=== PATIENT | male | born 1960 | race Caucasian/White ===

== ENCOUNTER 2018-09-15 09:48 | Day surgery (SDC) | payer OTHER ==
[2018-09-11 15:23] VITALS: BMI 27.2
[~2018-09-15 09:48] MED LIST: LACTATED RINGERS 1,000 ML IV SCH; LIDOCAINE 1% 20 ML VIAL (10MG/ML) FOR IV START INTRADERMA PRN
[2018-09-15 10:14] VITALS: TEMP 97.8
[2018-09-15] MEDS ORDERED: LACTATED RINGERS 1,000 ML IV ONE ×2 (10:15→12:05)
[2018-09-15] MEDS ORDERED: LIDOCAINE 1% 20 ML VIAL (10MG/ML) FOR IV START INTRADERMA ONE (10:16)
[2018-09-15] MEDS ORDERED: MIDAZOLAM 2 MG/2 ML VIAL ONE (11:11)
[2018-09-15] MEDS ORDERED: PROPOFOL 10 MG/ML 20 ML VIAL IV ONE (11:11)
[2018-09-15] MEDS ORDERED: fentaNYL (PF) 50 MCG/ML 2 ML AMP ONE (11:11)
[2018-09-15 12:07] VITALS: RESP 16
--- NOTE | 2018-09-15 12:09 | P.PCN ---
Date of Procedure: 09/15/18 Description of Procedure: BRIEF HISTORY: Patient is a 58-year-old pleasant male scheduled for an elective colonoscopy as a part of screening for malignant colon cancer. The patient reports last colonoscopy was 10 years any bleeding significant only for hemorrhoids. No change in bowel habits, diarrhea or constipation. He does occasionally notice some blood per rectum with wiping. No family history of colon cancer. PROCEDURE PERFORMED: Colonoscopy. PREOPERATIVE DIAGNOSIS: Screening for malignant neoplasm of the colon, blood per rectum, last colonoscopy 10 years ago. ESTIMATED BLOOD LOSS: Minimal. IV sedation per Anesthesia. PROCEDURE: After informed consent was obtained, the patient, was brought into the endoscopy unit. IV sedation was administered by Anesthesia under continuous monitoring. Digital rectal examination was normal. Initially the Olympus CF-190 flexible video colonoscope was then inserted in the rectum, gradually advanced into the cecum without any difficulty. Careful examination was performed as the scope was gradually being withdrawn. Ileocecal valve and the appendiceal orifice were visualized and appeared normal. The terminal ileum was intubated and appeared normal. Prep was good. Mucosa of the cecum, ascending colon, transverse colon, descending colon, sigmoid colon, and rectum appeared normal. 2 diminutive 3 mm sessile descending colon polyps were removed with cold forcep polypectomy. Mild internal hemorrhoids. Retroflexion was performed in the rectum and no lesions were seen. The patient tolerated the procedure well. IMPRESSION: Normal-appearing colon from rectum to cecum. 2 diminutive descending colon polyps removed with cold forceps. Mild internal hemorrhoids. RECOMMENDATIONS: Findings of this examination were discussed with the patient and his . Okay to resume diet. Anticipate repeat colonoscopy in 5 years pending pathology from polypectomies.
[2018-09-15 12:18] VITALS: BP 140/80; PULSE 64
== END 2018-09-15 13:20 | disposition home or self-care (01) ==
LOC: ORWHC2ENDO 09:48
PROVIDERS: ATTEND Internal Medicine
DX: Z12.11 Encounter for screening for malignant neoplasm of colon (principal); D12.4 Benign neoplasm of descending colon; K64.8 Other hemorrhoids; I10 Essential (primary) hypertension; F17.210 Nicotine dependence, cigarettes, uncomplicated; Z79.899 Other long term (current) drug therapy
CPT/HCPCS: 45380; 88305; J2250; J3010; J2704

== ENCOUNTER → 2021-11-02 | Outpatient (CLI) | payer OTHER ==
--- NOTE | 2021-11-02 22:17 | MR ---
EXAMINATION TYPE: MR shoulder LT wo con DATE OF EXAM: 11/02/2021 COMPARISON: Radiographs 11/02/2021 HISTORY: Left shoulder pain and limited range of motion TECHNIQUE: Multiplanar, multisequence imaging of the left shoulder is performed without contrast. FINDINGS: Rotator Cuff: Moderate grade bursal surface partial-thickness tear of the supraspinatus tendon anteri or fibers on the background of moderate tendinosis. Moderate grade partial-thickness tear of the subs capularis tendon cranial fibers. Infraspinatus and teres minor tendons are grossly intact. No signifi cant rotator cuff muscular atrophy or edema. Acromioclavicular Joint: Moderate to severe osteoarthritis Glenohumeral Joint: Mild to moderate osteoarthritis. Labrum: Tear of the superior labrum extending approximately from the 9:00 to 6:00 position. Associate d edema and fluid in the subscapularis recess. There is involvement of the biceps anchor. Biceps Tendon: Moderate tendinosis of the long head biceps tendon with medial subluxation. Mild tenos ynovitis of the long head biceps tendon. Bone marrow signal: No focal abnormal marrow signal is appreciated. Other: No additional significant abnormality is appreciated. IMPRESSION: Moderate grade partial-thickness tear of the left supraspinatus and subscapularis tendons. SLAP type glenoid labral tear involving the biceps anchor. Associated edema and fluid in the subscapu itz recess. Also mild tenosynovitis of the long head biceps tendon. Moderate tendinosis of the long head biceps tendon with medial subluxation.
== END | disposition home or self-care (01) ==
LOC: RADMRIMAIN 14:05
PROVIDERS: ATTEND Orthopaedic Surgery
DX: M25.512 Pain in left shoulder (principal)

== ENCOUNTER 2021-12-28 05:50 | Day surgery (SDC) | payer OTHER ==
--- NOTE | 2021-12-28 03:23 | HP ---
HISTORY AND PHYSICAL Surgery is scheduled for 12/28/2021. HISTORY OF PRESENT ILLNESS: Lawrence Riley is a 61-year-old gentleman seen with progressive left shoulder pain. We discussed options for treatment. He elected to proceed with left shoulder arthroscopy. Consent was obtained. PAST MEDICAL HISTORY: Hypertension. PAST SURGICAL HISTORY: Right shoulder arthroscopy. DAILY MEDICATIONS: 1. Lisinopril. 2. Naproxen. ALLERGIES: None. SOCIAL HISTORY: Denies tobacco use. PHYSICAL EVALUATION OF THE LEFT SHOULDER: Flexion is 90 degrees, abduction is 90 degrees, external rotation is 10 degrees with weakness, tenderness along the anterolateral acromion, rotator cuff insertion. Impingement is positive at 90. Drop-arm sign is positive. Cross-body adduction sign is positive. Distal neurovascular exam is intact. RADIOGRAPHS: Left shoulder type 3 acromion, severe acromioclavicular osteoarthritis and cystic changes of the greater tuberosity. MRI of left shoulder, partial rotator cuff tear, labral tear, acromioclavicular joint osteoarthritis, and biceps tendinosis. IMPRESSION: 1. Left shoulder impingement with partial rotator cuff tear. 2. Left shoulder labral tear. 3. Left shoulder acromioclavicular joint osteoarthritis. 4. Hypertension. PLAN: Left shoulder arthroscopy with subacromial decompression, possible arthroscopic rotator cuff repair, Nola procedure, probable biceps tenotomy and debridement. MMODL / IJN: [id number] /
[2021-12-28] MEDS ORDERED: DEXAMETHASONE SOD PHOSPHATE 4 MG/ML 1 ML VIAL IV ONE (06:08)
[2021-12-28] MEDS ORDERED: ONDANSETRON 4 MG/2 ML VIAL IVP ONE (06:08)
[2021-12-28] MEDS ORDERED: LACTATED RINGERS 1,000 ML IV SCH (06:08)
[2021-12-28] MEDS ORDERED: HYDROmorphone 0.5 MG/0.5 ML SYRINGE IVP PRN (06:08)
[2021-12-28 06:25] VITALS: RESP 16; TEMP 98
[2021-12-28] MEDS ORDERED: fentaNYL (PF) 50 MCG/ML 2 ML AMP IVP ONE (07:07)
[2021-12-28] MEDS ORDERED: MIDAZOLAM 2 MG/2 ML VIAL IVP ONE (07:07)
[2021-12-28] MEDS ORDERED: NEOSTIGMINE 1 MG/ML 10 ML VIAL ONE (07:25)
[2021-12-28] MEDS ORDERED: fentaNYL (PF) 50 MCG/ML 2 ML AMP ONE (07:25)
[2021-12-28] MEDS ORDERED: ROCURONIUM 10 MG/ML (5 ML VIAL) IV ONE (07:25)
[2021-12-28] MEDS ORDERED: PROPOFOL 10 MG/ML 20 ML VIAL IV ONE (07:25)
[2021-12-28] MEDS ORDERED: PHENYLEPHRINE-0.9% NACL SYG 1,000 MCG/10 ML SYRINGE ONE (07:25)
[2021-12-28] MEDS ORDERED: MIDAZOLAM 2 MG/2 ML VIAL ONE (07:25)
[2021-12-28] MEDS ORDERED: LIDOCAINE 2% INJ 20 MG/ML (2 ML VIAL) ONE (07:25)
[2021-12-28] MEDS ORDERED: ROPIVACAINE 5 MG/ML 30 ML VIAL ONE (07:25)
[2021-12-28] MEDS ORDERED: GLYCOPYRROLATE 0.2 MG/ML 2 ML VIAL ONE (07:25)
[2021-12-28] MEDS ORDERED: SUCCINYLCHOLINE CHLORIDE 200 MG/10 ML VIAL IV ONE (07:25)
--- NOTE | 2021-12-28 07:54 | P.ANPRN ---
Procedure Note - Anesthesia - Nerve Block Performed Left Interscalene Single Time Out Performed: Yes ([id number]) Date of Procedure: 12/28/21 Procedure Start Time: : Procedure Stop Time: :14 Location of Patient: PreOp Indication: Acute Post-Operative Pain, Requested by Surgeon Specifically requested for management of pain by DrLinsey: Reece Olmedo Sedation Type: Sedate with meaningful contact maintained Preparation: Sterile Prep Position: Supine Catheter: None Needle Types: Pajunk Needle Gauge: 21 Ultrasound used to visualize needle placement: Yes Ultrasound used to observe medication spread: Yes Injectate: 0.5% Ropivacaine (see comment for volume) (30cc) Blood Aspirated: No Pain Paresthesia on Injection Noted: No Resistance on Injection: Normal Image Stored and Saved: Yes Events: Uneventful and Well Tolerated
[2021-12-28] MEDS ORDERED: LACTATED RINGERS 1,000 ML IV ONE (08:21)
--- NOTE | 2021-12-28 08:50 | P.OP ---
Date of Procedure: 12/28/21 Preoperative Diagnosis: Left shoulder impingement Postoperative Diagnosis: 1. Left shoulder rotator cuff 2. Left shoulder impingement 3. Left shoulder partial long head biceps tendon tear Procedure(s) Performed: 1. Left shoulder arthroscopic rotator cuff repair 2. Left shoulder arthroscopic subacromial decompression 3. Left shoulder arthroscopic biceps tenotomy Implants: 15.5 Arthrex swivel lock anchor Anesthesia: GETA, regional (Interscalene block) Surgeon: Reece Olmedo Upset Operator #1: Tommie Arboleda Estimated Blood Loss (ml): 7 Pathology: none sent Condition: stable Disposition: PACU Indications for Procedure: 61-year-old patient seen with progressive left shoulder pain. After treatment options were discussed, he elected to proceed with arthroscopy. Operative Findings: See description of procedure Description of Procedure: Patient underwent an interscalene block by department of anesthesia. The patient was then taken to the operative suite. The patient underwent a general anesthetic by the department of anesthesia. The patient was placed into a lateral position and secured. There was appropriate padding of the bony prominence. Left shoulder was then prepped and draped in normal sterile orthopedic fashion. We placed the extremity in 10 pounds of longitudinal traction. A posterior incision was now made for a posterior working portal site. The trocar and cannula were inserted into the glenohumeral joint. Arthroscopy was initiated. Spinal needle was now inserted anteriorly, to ascertain the anterior working portal site. An incision was now made in that area, a trocar was inserted followed by a probe. There was some hyperemia and partial tearing long head biceps tendon. There was some superficial tearing of the superior la raina. There were mild grade 1 chondromalacia changes of the glenohumeral joint. I performed arthroscopic biceps tenotomy. I debrided the area of superficial fraying of labrum. The leg was again probed and was found to be stable. Instruments were now removed from glenohumeral joint. Utilizing the posterior working portal site, the trocar and cannula were inserted into the subacromial space. Arthroscopy initiated. I made an incision 2 fingerbreadths lateral to the acromion. I introduced my trocar followed by my ArthroCare ablator. I now began ablating thick subacromial bursal tissue, which exposed the undersurface of the anterior acromion. There was diminished subacromial space. There was a very prominent anterior acromion. A motorized bur was introduced and a subacromial decompression was performed. I also excised some osteophytes off the inferior aspect of the distal clavicle. The AC joint was visualized and noted to be moderately arthritic, I did not think enough toward a Nola procedure. I turned my attention to the rotator cuff tendon. There was a full-thickness perforation along the anterior aspect of the distal supraspinatus. I debrided the margins getting down to stable tendon tissue. The tear/defect measuring approximately 1.5 cm and was freely mobile over the footprint. I abraded the footprint with a motorized bur. I passed 3 everted mattress suture through good bites of rotator cuff tendon. I punched hole in the footprint area for insertion of an anchor. All 6 limbs of suture were passed through the eyelet of a 5.5 Arthrex swivel lock anchor. I placed the eyelet into the pre-punched hole. I held in position while Kulwant GOMES tensioned all 6 limbs of suture and deployed the anchor with good fixation noted. All residual suture limbs were now clipped. We had good compression of the tendon along the entire footprint. Instruments now removed from the portal sites. All portal sites were approximated with nylon suture. Sterile dressings were applied followed by a shoulder sling. Tommie GOMES assisted in this complex case. The patient was awakened, transferred to a bed, and taken to recovery in stable condition.
[2021-12-28 09:43] VITALS: BP 142/91; PULSE 85
[2021-12-28] MEDS ORDERED: HYDROcodone/APAP 7.5-325MG 1 EACH TAB ONE (09:45)
== END 2021-12-28 10:40 | disposition home or self-care (01) ==
LOC: OR 05:50
PROVIDERS: ATTEND Orthopaedic Surgery
DX: M19.012 Primary osteoarthritis, left shoulder (principal); G89.18 Other acute postprocedural pain; M75.42 Impingement syndrome of left shoulder; M75.102 Unspecified rotator cuff tear or rupture of left shoulder, not specified as traumatic; S43.492A Other sprain of left shoulder joint, initial encounter; I10 Essential (primary) hypertension; E78.5 Hyperlipidemia, unspecified; Z87.891 Personal history of nicotine dependence; X58.XXXA Exposure to other specified factors, initial encounter
CPT/HCPCS: 29827; 29826; 29828; 64415; 76942; C1713; J2250; J0330; J1100; J2710; J0690; J2405; J3010; J2795; J2370; J2704; J2001

== ENCOUNTER → 2022-05-23 | Outpatient (CLI) | payer OTHER ==
--- NOTE | 2022-05-23 14:59 | CTL ---
EXAMINATION TYPE: CT Low Dose Lung DATE OF EXAM ORDERED: 05/23/2022 HISTORY: Long-term tobacco use. Lung cancer screening CT DLP: [address] CTDI: 2.6 mGy Automated exposure control for dose reduction was used. SCREENING VISIT: Baseline COMPARISON: None TECHNIQUE: Low dose computed tomography scan was performed through the chest at 1 mm thick sections a nd reconstructed images in multiple planes at 1 mm and [address] DIAGNOSTIC QUALITY: Limited, but interpretable FINDINGS: LUNG NODULES: Present, detailed below: A few scattered small nodules. There is 5 mm posterior right upper lung nodule or nodular consolidati on axial image 36 for reference. There is 4 to 5 mm medial left lower lobe nodule axial image 233 not ed for reference. LUNGS: COPD: Severity: Mild to minimal Fibrosis: Severity: Mild to moderate linear scarring and/or atelectasis in the right lower lung Lymph nodes: No greater than 1 cm Other findings: Prominent right pulmonary artery raises concern for underlying pulmonary hypertension . RIGHT PLEURAL SPACE: Effusion: Small 2 borderline moderate-sized Calcification: None Thickening: None Pneumothorax: None LEFT PLEURAL SPACE: Effusion: None Calcification: None Thickening: None Pneumothorax: None HEART: Heart Size: Normal Coronary Calcification: Mild to moderate Pericardial Effusion: None Some calcification at the level of the mitral valve. OTHER FINDINGS: Upper abdomen: Visualized liver is low dense suggesting diffuse fatty infiltration. Bony thorax: Multilevel spurring and bridging osteophytes in the thoracic spine Supraclavicular region: None Other: Bilateral subareolar gynecomastia is suspected slightly more prominent on the right, correlate clinically. Ectatic ascending thoracic aorta up to 3.9 cm. IMPRESSION: Suboptimal with a few small nodules. No significant greater than [address] LUNG RAD AND CT CHEST RECOMMENDATION: Lung-Rad 2 Benign Appearance or Behavior: Continue annual sc reening with LDCT in 12 months. S Modifier (other clinically significant findings): S Small right pleural effusion. Unilateral pleural effusion may want further clinical workup. Suspect a symmetric right greater than left gynecomastia. Clinical correlation and direct physical exam correla tion advised. Suspect underlying pulmonary hypertension. Ectatic ascending aorta up to 3.9 cm. Some c alcification level of the mitral valve. Consider cardiac echo follow up to further evaluate.
== END | disposition home or self-care (01) ==
LOC: RADCTMAIN 13:29
PROVIDERS: ATTEND Family Medicine
DX: Z12.2 Encounter for screening for malignant neoplasm of respiratory organs (principal); F17.210 Nicotine dependence, cigarettes, uncomplicated; R91.8 Other nonspecific abnormal finding of lung field
CPT/HCPCS: 71271

== ENCOUNTER 2022-06-04 08:12 | Day surgery (SDC) | payer OTHER ==
--- NOTE | 2022-06-03 21:01 | HP ---
HISTORY AND PHYSICAL DATE OF SURGERY: 06/04/2022 HISTORY O PRESENT ILLNESS: Lawrence Betts is a 62-year-old patient seen with persistent left shoulder adhesive capsulitis. We discussed options. He elected to proceed with manipulation under anesthesia left shoulder steroid injection. Consents obtained. PAST MEDICAL HISTORY: Hypertension. SURGICAL HISTORY: Shoulder arthroscopy. DAILY MEDICATIONS: Antihypertensive. ALLERGIES: None. SOCIAL HISTORY: Smokes cigarettes. PHYSICAL EXAMINATION OF LEFT SHOULDER: Previous arthroscopic portal sites are well healed. He flexes to 90 degrees, abducts to 60 degrees. External rotation is 50 degrees with reasonable strength. His distal neurovascular exam is intact. RADIOGRAPHS: Radiographs of the left shoulder revealed stable conversion to a flat anterior acromion. IMPRESSION: 1. Left shoulder adhesive capsulitis. 2. History of previous left shoulder arthroscopy. 3. Hypertension. PLAN: Manipulation under anesthesia left shoulder with steroid injection. MMFORREST / MARION: [id number] /
[~2022-06-04 08:12] MED LIST changes: +DEXAMETHASONE SOD PHOSPHATE 4 MG/ML 1 ML VIAL IV ONE; -LIDOCAINE 1% 20 ML VIAL (10MG/ML) FOR IV START INTRADERMA PRN; +MIDAZOLAM 2 MG/2 ML VIAL IV PRN; +ONDANSETRON 4 MG/2 ML VIAL IVP ONE; +SCOPOLAMINE 1 MG/72 HR PATCH TRANSDERM ONE
[2022-06-04] MEDS ORDERED: MIDAZOLAM 2 MG/2 ML VIAL ONE (09:30)
[2022-06-04] MEDS ORDERED: PROPOFOL 10 MG/ML 20 ML VIAL IV ONE (09:30)
[2022-06-04] MEDS ORDERED: methylPREDNISolone ACETATE 80 MG/ML 1 ML VIAL MISCELLANE ONE (09:37)
[2022-06-04] MEDS ORDERED: BUPIVACAINE (PF) 0.25% 30 ML VIAL MISCELLANE ONE (09:37)
--- NOTE | 2022-06-04 09:41 | P.OP ---
Date of Procedure: 06/04/22 Preoperative Diagnosis: Left shoulder adhesive capsulitis Postoperative Diagnosis: Left shoulder adhesive capsulitis Procedure(s) Performed: Manipulation under anesthesia left shoulder with steroid injection Anesthesia: MAC Surgeon: Reece Olmedo Estimated Blood Loss (ml): 0 Pathology: none sent Condition: stable Disposition: PACU Indications for Procedure: 62-year-old patient seen with persistent left shoulder adhesive capsulitis with history of previous arthroscopy. I discussed manipulation under anesthesia with steroid injection. Patient was agreeable, consent was obtained. Operative Findings: See description of procedure Description of Procedure: Patient was taken to monitored anesthesia. Patient underwent IV sedation by the department of anesthesia. Once sufficient anesthesia was noted I performed a manipulation of the left shoulder achieving near full range of motion with audible tearing of the adhesions. The anterior aspect of the shoulder was now prepped and draped in normal sterile orthopedic fashion. I injected a solution of 1 mL Depo-Medrol and 2 mL quarter percent plain Marcaine intra-articular under sterile technique. Once it was completed I took the shoulder through range of motion again. I then applied a sterile Band-Aid. The patient was now awakened having tolerated procedure well.
[2022-06-04] MEDS: HYDROmorphone 0.5 MG/0.5 ML SYRINGE IVP PRN ×2 (09:50→10:00)
[2022-06-04 09:54] VITALS: RESP 16; TEMP 98
[2022-06-04] MEDS ORDERED: HYDROcodone/APAP 7.5-325MG 1 EACH TAB ONE (10:29)
[2022-06-04] MEDS ORDERED: HYDROcodone/APAP 7.5-325MG 1 EACH TAB PO ONE (10:31)
[2022-06-04 10:52] VITALS: BP 155/82; PULSE 91
== END 2022-06-04 11:15 | disposition home or self-care (01) ==
LOC: OR 08:12
PROVIDERS: ATTEND Orthopaedic Surgery
DX: M75.02 Adhesive capsulitis of left shoulder (principal); I10 Essential (primary) hypertension; F17.210 Nicotine dependence, cigarettes, uncomplicated; Z79.899 Other long term (current) drug therapy
CPT/HCPCS: 23700; J2250; J1040; J1100; J2405; J2704; J1170

== ENCOUNTER 2023-09-17 09:40 | Day surgery (SDC) | payer OTHER, MEDICARE ==
[2023-09-12 13:45] VITALS: BMI 31.5
[~2023-09-17 09:40] MED LIST changes: -DEXAMETHASONE SOD PHOSPHATE 4 MG/ML 1 ML VIAL IV ONE; -LACTATED RINGERS 1,000 ML IV SCH; +LIDOCAINE 1% (10MG/ML) FOR IV START INTRADERMA PRN; -MIDAZOLAM 2 MG/2 ML VIAL IV PRN; -ONDANSETRON 4 MG/2 ML VIAL IVP ONE; -SCOPOLAMINE 1 MG/72 HR PATCH TRANSDERM ONE
[2023-09-17] MEDS: IV FLUID CONTINUATION 1,000 ML IV ONE (11:52)
[2023-09-17 11:57] VITALS: TEMP 97.5
[2023-09-17] MEDS: LACTATED RINGERS 1,000 ML IV SCH (12:01)
[2023-09-17] MEDS ORDERED: PROPOFOL 10 MG/ML 20 ML VIAL IV ONE (12:23)
--- NOTE | 2023-09-17 12:36 | P.PCN ---
Date of Procedure: 09/17/23 Procedure(s) Performed: BRIEF HISTORY: Patient is a 63-year-old pleasant white male scheduled for an elective colonoscopy as a part of evaluation by history of colon polyps. Last colonoscopy was 5 years ago. PROCEDURE PERFORMED: Colonoscopy with snare polypectomy PREOPERATIVE DIAGNOSIS: History of colon polyps. IV sedation per Anesthesia. PROCEDURE: After informed consent was obtained, the patient, was brought into the endoscopy unit. IV sedation was administered by Anesthesia under continuous monitoring. Digital rectal examination was normal. Initially the Olympus CF-160 flexible video colonoscope was then inserted in the rectum, gradually advanced into the cecum without any difficulty. Careful examination was performed as the scope was gradually being withdrawn. Ileocecal valve and the appendiceal orifice were visualized and appeared normal. Prep was excellent. Mucosa of the cecum, ascending colon, transverse colon, appeared normal. In the descending colon there was a 5 mm and 8 mm polyp that was removed by cold snare polypectomy. Rest of the descending colon, sigmoid colon, and rectum appeared normal. Retroflexion was performed in the rectum and no lesions were seen. The patient tolerated the procedure well. IMPRESSION: 5 mm and 8 mm descending colon polyp status post cold snare polypectomy Rest of the colon appeared normal RECOMMENDATIONS: Findings of this examination were discussed with the patient as well as his family. He was advised to follow-up with the biopsy results. If the biopsy was adenoma he can have repeat colonoscopy in 5 years.
[2023-09-17 12:45] VITALS: BP 138/87; RESP 16
[2023-09-17 12:56] VITALS: PULSE 80
== END 2023-09-17 13:20 | disposition home or self-care (01) ==
LOC: ORWHC2ENDO 09:40
PROVIDERS: ATTEND Internal Medicine Gastroenterology
DX: I10 Essential (primary) hypertension (principal); Z87.891 Personal history of nicotine dependence; Z79.899 Other long term (current) drug therapy
CPT/HCPCS: 88305; 45385; J2704

== ENCOUNTER → 2024-06-05 | Outpatient (CLI) | payer OTHER, MEDICARE ==
--- NOTE | 2024-06-05 14:44 | CTL ---
EXAMINATION TYPE: CT Low Dose Lung DATE OF EXAM ORDERED: 06/05/2024 COMPARISON: CT Low Dose Lung 05/23/2022 CLINICAL INDICATION: Male, 64 years old with history of Z12.2 LUNG CA SCR Z87.891 FORMER [employer]; [facility], routine lung screening, Lung cancer screening, History of Smoking/tobacco use. TECHNIQUE: Low dose computed tomography scan was performed through the chest at 1 mm thick sections a nd reconstructed images in multiple planes at 1 mm and [address] DLP: 162.[address] CTDI: 4.11 mGy Automated exposure control for dose reduction was used. CT DIAGNOSTIC QUALITY: Satisfactory FINDINGS: Nodules: Stable posterior right apical 4.8 mm pulmonary nodule (series 6, image 6). Stable medial left lower l obe subpleural 5.2 mm pulmonary nodule (series 6, image 46). Stable lateral right upper lobe subpleur al 2.1 mm dominant nodule (series 6, image 14). No new or enlarging pulmonary nodules. LUNGS: COPD: Severity: None Fibrosis: Severity: None Lymph nodes: None Other findings: None RIGHT PLEURAL SPACE: Effusion: None Calcification: None Thickening: None Pneumothorax: None LEFT PLEURAL SPACE: Effusion: None Calcification: None Thickening: None Pneumothorax: None HEART: Heart Size: Normal, some calcification at the level of the mitral valve. Coronary Calcification: Small Pericardial Effusion: None OTHER FINDINGS: Upper abdomen: Suggested hepatic steatosis. Bony thorax: Multilevel spurring and bridging osteophytes in the thoracic spine Supraclavicular region: None Other: Mild bilateral gynecomastia redemonstrated with right greater than left. Similar ectatic ascen ding thoracic aorta measuring up to 3.9 cm. IMPRESSION: Few stable pulmonary nodules measuring less than 6 mm. No new or enlarging pulmonary nodu les. CT LUNG RAD AND CT CHEST RECOMMENDATION: Lung-Rad 2 Benign Appearance or Behavior: Continue annual sc reening with LDCT in 12 months. S Modifier (other clinically significant findings): None [facility], , 06/05/2024 2:41 PM
== END | disposition home or self-care (01) ==
LOC: RADCTMAIN 13:37
PROVIDERS: ATTEND Family Medicine
DX: Z12.2 Encounter for screening for malignant neoplasm of respiratory organs (principal); R91.8 Other nonspecific abnormal finding of lung field; Z87.891 Personal history of nicotine dependence
CPT/HCPCS: 71271